=== PATIENT | male | born 1985 | race Caucasian/White ===

== ENCOUNTER → 2017-02-05 | Outpatient (CLI) | payer OTHER | LOC: COL.RAD 11:55 | DX: M54.5 Low back pain (principal) | CPT/HCPCS: A9585 ==

== ENCOUNTER → 2020-09-20 | Outpatient (CLI) | payer BC | LOC: ZCOL.LAB 13:40 | DX: Z20.828 Contact with and (suspected) exposure to other viral communicable diseases (principal); J02.9 Acute pharyngitis, unspecified; R06.02 Shortness of breath; M79.10 Myalgia, unspecified site ==